=== PATIENT | female | born 1960 | race Caucasian/White ===

== ENCOUNTER 2023-01-02 09:50 | Emergency (ER) | payer OTHER ==
[~2023-01-02] VITALS: Ht 147.3 cm; Wt 77.1 kg
[2023-01-02 10:05] VITALS: BP 151/83; PULSE 66; RESP 18; TEMP 97.2; O2SAT 97
[2023-01-02 10:35] VITALS: TEMP 97.2
[2023-01-02] MEDS ORDERED: KETOROLAC 30 MG/ML VIAL IM ONE (12:15)
[2023-01-02] MEDS ORDERED: LIDOCAINE 2% 1000 MG/50 ML VIAL INJ ONE (12:15)
[2023-01-02] MEDS ORDERED: fentaNYL citrate 0.05 MG/ML VIAL IVP ONE (13:25)
[2023-01-02] MEDS ORDERED: ONDANSETRON 4 MG/2 ML VIAL IVP ONE (13:25)
[2023-01-02] MEDS ORDERED: ACET-10509 PO ×2 (14:48→15:27)
[2023-01-02] MEDS ORDERED: IBUP-2213 PO ×2 (14:48→15:27)
[2023-01-02 15:34] VITALS: BP 134/62; PULSE 70; RESP 12; O2SAT 96
== END 2023-01-02 15:28 | disposition home or self-care (01) ==
LOC: MED 09:50
DX: S52.511A Displaced fracture of right radial styloid process, initial encounter for closed fracture (principal); S80.01XA Contusion of right knee, initial encounter; W18.30XA Fall on same level, unspecified, initial encounter; Y93.89 Activity, other specified; Y92.89 Other specified places as the place of occurrence of the external cause; Y99.8 Other external cause status
CPT/HCPCS: 25605; 73100; 73110; 73562; 96372; 96374; 96375; 99284; J1885; J2001; J2405; J3010